=== PATIENT | male | born 1965 | race Caucasian/White ===

== ENCOUNTER 2018-02-22 06:11 | Day surgery (SDC) | payer BC ==
[2018-02-21 11:09] VITALS: BMI 31.1
[2018-02-22] MEDS ORDERED: MIDAZOLAM HCL 2 MG/2 ML SINGLE DOSE VIAL ONE (07:11)
[2018-02-22] MEDS ORDERED: PROPOFOL 20 ML ONE (07:11)
[2018-02-22] MEDS ORDERED: fentaNYL CITRATE 250 MCG/5 ML VIAL ONE (07:11)
[2018-02-22] MEDS ORDERED: SUCCINYLCHOLINE CHLORIDE 200 MG/10 ML VIAL ONE (07:11)
[2018-02-22] MEDS ORDERED: LIDOCAINE HCL/PF 2% SDV 5ML VIAL ONE (07:12)
[2018-02-22] MEDS ORDERED: DEXAMETHASONE SOD PHOSPHATE 4 MG/1 ML VIAL ONE (07:12)
[2018-02-22] MEDS ORDERED: ROCURONIUM BROMIDE 50 MG/5 ML VIAL ONE (07:17)
[2018-02-22] MEDS ORDERED: COCAINE HCL 4% TOPICAL SOLUTION 4 ML BOTTLE TP ONE (07:33)
[2018-02-22] MEDS ORDERED: oxyCODONE HCL 5 MG TABLET PO PRN ×2 (09:24)
[2018-02-22] MEDS ORDERED: ONDANSETRON 4 MG/2 ML VIAL IVPUSH PRN (09:24)
[2018-02-22] MEDS ORDERED: ADENOSINE 6 MG/2 ML VIAL IVPUSH ONE (09:27)
[2018-02-22] MEDS ORDERED: LACTATED RINGERS SOLUTION 1,000 ML IV SCH (09:30)
--- NOTE | 2018-02-22 12:15 | OP ---
DATE OF OPERATION: 02/22/2018 PREOPERATIVE DIAGNOSES: Chronic sinusitis, deviated nasal septum, and bilateral inferior turbinate hypertrophy. POSTOPERATIVE DIAGNOSES: Chronic sinusitis, deviated nasal septum, and bilateral inferior turbinate hypertrophy. PROCEDURES: Bilateral endoscopic frontal duct exploration, bilateral endoscopic total ethmoidectomy, bilateral endoscopic maxillary antrostomy, bilateral endoscopic sphenoidotomy, septoplasty, and bilateral submucous resection of the inferior turbinates. SURGEON: Jimmy Milton MD ANESTHESIA: General endotracheal INDICATIONS: The patient is a 52-year-old man with chronic sinusitis, refractory to maximal medical management, as well as nasal obstruction due to a deviated septum and hypertrophic inferior turbinates, who requests surgery. CT scan shows inflammation of multiple sinuses, especially the left sphenoid. The nature and purpose of the proposed procedure, as well as the risks, benefits, alternatives and possible complications, were discussed in detail with the patient, who appears to understand and wishes to proceed with surgery. All questions were answered and informed consent was given by the patient. PROCEDURE DESCRIPTION: With the patient under general endotracheal anesthesia in the supine position with his back slightly raised, he was prepped and draped in the usual sterile fashion. The nose was injected with a total of 10 mL of 1% lidocaine with epinephrine 1:100,000. This was administered as 6 mL at the beginning of the case and then 4 mL about an hour later. Cocaine 4% on cottonoid pledgets was placed into each nasal cavity and middle meatus for further decongestion and topical anesthesia. The procedure was then begun on the right sided sinuses. Under endoscopic guidance, the right sphenoid ostium was identified between the superior turbinate and the nasal septum and was cannulated. There were no secretions noted within it. The middle turbinate was then retracted medially and a retrograde uncinectomy was performed. The maxillary ostium was identified and was opened posteroinferiorly. An ezqgahej-ej-bnmnajsag ethmoidectomy was then performed. A powered microdebrider was used to assist during the maxillary and ethmoid portion of the case. Then the frontal duct was identified and bony spicules and edematous mucosa were removed from within it. Brisk venous oozing was partly controlled with suction cautery and partly with Stammberger Sinu-Foam packing. The right inferior turbinate was then addressed. The anterior-inferior portion was resected, followed by suction cautery, and then a Coblation Reflex 45 wand on a setting of 6 ablation was used for the more superior and posterior aspects to create several lesions with multiple passes. The inferior turbinate was then bluntly lateralized. The septum was then addressed through a left-sided, hemitransfixion incision. A left-sided flap was elevated intact and an oblique incision was made on the septal cartilage leaving a 1.5-cm caudal cartilaginous strut intact. Through this, a right-sided flap was elevated intact except for an inadvertent perforation at the area of raised deflection inferiorly. Deflected portions of septal bone and cartilage were resected. Hemostasis was achieved with suction cautery and this afforded good access to the left sinus regions. The septum was closed with septal paradise and the incision was closed with 3-0 chromic. On the left sided sinuses, the sphenoid ostium was identified between the superior turbinate and septum and was noted to be patent, but was further opened with cold instruments. Inside the left sphenoid sinus, there was thick mucopus which was drained and then the sinus was examined and noted to look clear. The left middle turbinate was then reflected medially and a retrograde uncinectomy was performed. The left maxillary ostium was identified and opened posteroinferiorly, and the left antrum was examined and noted to be clear of disease. An lawyefip-wj-catbtiibl total ethmoidectomy was then performed. Powered instrumentation was used for the ethmoid and maxillary portion of that side. The left frontal duct was explored with removal of bony spicules and edematous mucosa without evidence of gabriel infection. Stammberger Sinu-Foam was then used to pack into the middle meatus. The left inferior turbinate was then addressed with the Reflex 45 Coblation wand making multiple lesions in two passes inferiorly and superiorly and then the turbinate was bluntly lateralized. A small amount of Surgicel packing was then placed against the right inferior turbinate's raw edge and then a nasal tip dressing was applied. When the patient awakened, he was extubated and discharged to the recovery room in satisfactory condition. There were no complications. Specimens were sent for pathology. Estimated blood loss was 100 mL. JIMMY MILTON M.D. ROLANDO/[id number] MTDD
[2018-02-22 13:54] VITALS: BP 114/65; PULSE 73; TEMP 97.7
--- NOTE | 2018-02-25 15:54 | PATH ---
Surgical Pathology Report Patient Name: RONEL PINTO [facility]. Rec. #: [id number] /Age/Gender: 1965 (Age: 52) / M Account: [id number] Location: [facility] SURGICAL Taken: 02/23/2018 Received: 02/23/2018 Reported: 02/25/2018 Physicians: Harlan Milton Specimen(s) Received A: RIGHT SINUS,PARANASAL BIOPSY B: SEPTUM AND/OR TURBINATES C: LEFT SINUS,PARANASAL BIOPSY Clinical History The Deviated nasal septum Final Diagnosis A. SINUS CONTENTS, RIGHT, TURBINECTOMY: FRAGMENTS OF RESPIRATORY MUCOSA AND BONE. B. SEPTUM, SEPTOPLASTY: FRAGMENTS OF BENIGN CARTILAGE. C. SINUS CONTENTS, LEFT, TURBINECTOMY: FRAGMENTS OF RESPIRATORY MUCOSA AND BONE. Electronically Signed Monica Quintero M.D. Gross Description A. Received in formalin labeled "right sinus content," is a 2.5 x 1.7 x 0.3 cm aggregate of rick, irregular to polypoid portions of soft tissue and possible cartilage. The specimen is entirely submitted in one cassette. B. Received in formalin labeled "septum," is a 3.5 x 3.0 x 0.2 cm aggregate of multiple portions of cartilage. Lye [employer] Operator sections are submitted in one cassette. C. Received in formalin labeled "left sinus contents," is a 3.5 x 2.4 x 0.3 cm aggregate of rick, irregular to polypoid portions of soft tissue and possible cartilage. A district sales representative portion is submitted in one cassette. /02/23/2018 saudi02/23/2018
== END 2018-02-22 13:45 | disposition home or self-care (01) ==
LOC: JASU-SURG 06:11
PROVIDERS: ATTEND Otolaryngology
PROC: 09BM8ZZ Excision of Nasal Septum, Via Natural or Artificial Opening Endoscopic (ICD-10-PCS; 2018-02-22)
PROC: 09TL8ZZ Resection of Nasal Turbinate, Via Natural or Artificial Opening Endoscopic (ICD-10-PCS; 2018-02-22)
PROC: 09TV8ZZ Resection of Left Ethmoid Sinus, Via Natural or Artificial Opening Endoscopic (ICD-10-PCS; principal; 2018-02-22 07:30)
PROC: 09TU8ZZ Resection of Right Ethmoid Sinus, Via Natural or Artificial Opening Endoscopic (ICD-10-PCS; 2018-02-22 07:30)
DX: J34.2 Deviated nasal septum (principal); J34.3 Hypertrophy of nasal turbinates; J32.4 Chronic pansinusitis
CPT/HCPCS: 88302-TC; 88305-TC; 88311-TC; 94760